=== PATIENT | male | born 1975 | race African-American/Black ===

== ENCOUNTER 2017-03-20 11:30 | Emergency (ER) | payer MEDICAID ==
[~2017-03-20] VITALS: Ht 177.8 cm; Wt 111.0 kg
[2017-03-20] MEDS ORDERED: IPRATROPIUM/ALBUTEROL 0.5-3(2.5)MG/3ML NEB HHN ONE (18:30)
[2017-03-20] MEDS ORDERED: IBUPROFEN 600MG TABLET PO ONE (21:30)
[2017-03-20 22:51] VITALS: BP 123/68
== END 2017-03-20 22:55 | disposition home or self-care (01) ==
LOC: ER 12:56
DX: J06.9 Acute upper respiratory infection, unspecified (principal); J45.901 Unspecified asthma with (acute) exacerbation; K04.7 Periapical abscess without sinus; F17.200 Nicotine dependence, unspecified, uncomplicated
CPT/HCPCS: 71045; 94640; 99283; J7620; Z7610